=== PATIENT | male | born 1990 | race Caucasian/White ===

== ENCOUNTER 2017-04-30 06:25 | Day surgery (SDC) | payer MEDICAID ==
[2017-04-30] MEDS ORDERED: EPINEPHrine 1:1000 Nasal Sol(30mL) ONE (07:36)
[2017-04-30] MEDS ORDERED: ceFAZolin IV 1 gm in Dextrose 1 GM/50 ML BAG IVPB ONE (07:36)
[2017-04-30] MEDS ORDERED: Lidocaine 2% w Epi 1:100,000 Inj IJ ONE (07:45)
[2017-04-30] MEDS ORDERED: Acetaminophen-Codeine 300/30 mg Tab PO PRN (08:29)
[2017-04-30] MEDS ORDERED: Dextrose 5%/0.45% NS 1,000 ML IV SCH (08:30)
[2017-04-30] MEDS ORDERED: Midazolam 2 MG/2 ML VIAL ONE (08:49)
[2017-04-30] MEDS ORDERED: Propofol 10 mg/ml Inj (20 ML) ONE (08:49)
[2017-04-30] MEDS ORDERED: Lactated Ringer's 1,000 ML IV ONE (09:02)
[2017-04-30] MEDS: Lidocaine/Epinephrine 1% 1:100000 10 ML IJ ONE ×2 (09:20→09:32)
[2017-04-30] MEDS: HYDROmorphone 0.5 mg/0.5 ml ISec IVP PRN ×2 (10:50→12:14)
--- NOTE | 2017-04-30 10:50 | OP ---
PROCEDURE DATE: 04/30/2017 PREOPERATIVE DIAGNOSES: Deviated septum, large turbinates, sinusitis. POSTOPERATIVE DIAGNOSES: Deviated septum, large turbinates, sinusitis. PROCEDURE: Endoscopic left maxillary antrostomy, endoscopic left ethmoidectomy, endoscopic bilateral inferior turbinate reduction, septoplasty. SIGNIFICANT FINDINGS: Deviated septum, large turbinates, sinusitis, changes in the ethmoid sinuses and left maxillary antrum completely stenosed. DESCRIPTION OF PROCEDURE: The patient was brought into the room, placed in supine position, anesthesia was initiated through an ET tube. Navigation was set up and used throughout the case in order to ensure that the skull base and orbit were not entered. The patient was draped in the usual manner. Adrenaline-soaked pledgets were inserted into the nasal cavity, remained there for at least 5 minutes and removed. The septum was injected with lidocaine with epinephrine on both sides. A Kyle incision was made on the left and mucoperichondrial flap was raised. Next, a vertical incision was made in the cartilage leaving a 1.5-cm anterior and superior strut and a mucoperichondrial flap was raised on the other side. Deviated portion of the bone and cartilage were removed. Perforation was made in the posterior septum on the left in order to drain any possible blood clots. A quilting suture was used to suture the two flaps together and close the Kyle incision. A 0-degree scope was inserted into the nasal cavity. The inferior turbinates were noted to be enlarged and reduced in size using scissors to confirm an inferior to superior, anterior to posterior direction on both sides, first on the left, then on the right. Bleeding was controlled on both sides using suction cautery. Next, the middle turbinate was injected on the left with lidocaine with epinephrine and medialized. The uncinate process was medialized using a [place] elevator and removed using forceps. A debrider was used to enter the ethmoid bulla inferomedially, going posteriorly to the basal lamella, then anteriorly and superiorly until the ethmoid bulla was removed. The basal lamella was entered. Posterior ethmoid cells were entered and opened. Skull base was identified and followed anteriorly all the way to the area of the anterior ethmoid air cells. A curved suction hooked up to navigation was used to locate the maxillary antrum, which was noted to be stenosed and opened using forceps. Bleeding was controlled using adrenaline-soaked pledgets and suction cautery. Splints were placed. Stents were placed. The patient was taken off anesthesia and taken to recovery room in a stable manner. Vikas Floernce MD
[2017-04-30 13:14] VITALS: BP 109/79; PULSE 81; RESP 18; TEMP 97; O2SAT 100
== END 2017-04-30 15:14 | disposition home or self-care (01) ==
LOC: C.SDS 06:25
PROVIDERS: ATTEND Otolaryngology
DX: J34.2 Deviated nasal septum (principal); J34.3 Hypertrophy of nasal turbinates; J32.9 Chronic sinusitis, unspecified
CPT/HCPCS: 30130; 30520; 31255; 31256; 88304; J0690; J1100; J1170; J2250; J2405; J2704; J3010; J7030; J7120